=== PATIENT | female | born 1955 | race Caucasian/White ===

== ENCOUNTER 2022-09-11 12:24 | Inpatient (IN) | payer OTHER ==
[~2022-09-11] VITALS: Ht 157.5 cm; Wt 90.7 kg
--- NOTE | 2022-09-11 12:37 | NUR ---
PTE REFIERE QUE TUVO MIGUELINA REACION A UN MEDICAMENTO QUE SE EZIO
--- NOTE | 2022-09-11 13:43 | NUR ---
PACIENTE EVALUADA POR DR LORENZANA QUIEN [place]DE[place] MED[place], RN GARZA LE ORIENTA A PACIENTE SOBRE EL MISMO Y VERBALIZA ENTENDER. LE COLECTA MUESTRAS Y LE CANALIZA BAJO MEDIDAS ASEPTICAS. LE ADMINSITRA MED ADALBERTO ORDEN.
--- NOTE | 2022-09-11 15:37 | NUR ---
SE REALIZA ADMINISTRACION DE TERAPIA INTRABVENOSA POR ORDEN MEDICA, SE ORIENTA A PACIENTE SOBRE USO Y EFECTOS.
--- NOTE | 2022-09-12 01:31 | NUR ---
PTE ES EVALUADO POR DR NEAL. PTE SE ORIENTA Y VERBALIZA QUE ACCEPTA. SE EJECUTA ORDEN MEDICA EN [place] TOTALIDAD.
--- NOTE | 2022-09-12 08:29 | NUR ---
SE RECIBE PACIENTE DEL TURNO ANTERIOR, ALERTA Y ORIENTADA X3, EN LORI A NIVEL MAS BAJO, HAQUE DE IDETIFICACION Y BARRANDAS ELVADAS. SE OBSERVA CANALIZACION MILTON DE EDEMA O ERITEMA. AL MOMENTO BAJANDO 0.9 NSS @ 100 ML/HR.
--- NOTE | 2022-09-12 15:13 | NUR ---
PTE ALERTA Y ORIENTADA X3 ESFERAS EN COMPANIA DE FAMILIAR,EN CAMA CON BARANDAS ELEVADAS,NO REFIERE DOLOR AL MOMENTO,AREA DE VENOPUNCION PATENTE Y MILTON DE EDEMA CON FLUIDOS DE MANTENIMIENTO.PENDIENTE EVALUACION DE DR KHAN.
[2022-09-13] MEDS ORDERED: SIMVASTATIN20 MG (08:43)
[2022-09-13] MEDS ORDERED: GLYBURIDE-METF1 EACH (08:43)
[2022-09-13] MEDS ORDERED: FARXIGA10 MG (08:43)
[2022-09-13] MEDS ORDERED: LEVOTHYROXINE137 MCG (08:43)
[2022-09-13] MEDS ORDERED: TROSPIUM CHLORI20 MG (08:43)
[2022-09-13] MEDS ORDERED: LISINOPRIL40 MG (08:43)
== END 2022-09-15 13:28 | disposition home or self-care (01) | DRG 386 ==
LOC: ER 12:24 → MEDI 09-12 16:28
PROVIDERS: ADMIT Internal Medicine; ATTEND Internal Medicine
DX: K51.511 Left sided colitis with rectal bleeding (principal); A09 Infectious gastroenteritis and colitis, unspecified; I10 Essential (primary) hypertension; E11.9 Type 2 diabetes mellitus without complications; E03.9 Hypothyroidism, unspecified